=== PATIENT | female | born 1985 | race African-American/Black ===

== ENCOUNTER → 2021-09-16 | Day surgery (SDC) | payer OTHER ==
[2021-09-15 12:03] LABS: BASOPHILS % 0.5 % (0.0-1.0); EOSINOPHILS % 0.6 % (0.0-6.0); HEMATOCRIT 31.3 % (34.2-44.1); HEMOGLOBIN 8.8 g/dL (12.0-16.0); LYMPHOCYTES # (AUTO) 2.5 (1.0-3.2); LYMPHOCYTES % 40.9 % (18.0-39.1); MEAN CORPUSCULAR HEMOGLOBIN 19.6 pg (28-32); MEAN CORPUSCULAR HGB CONC 28.1 g/dL (31-35); MEAN CORPUSCULAR VOLUME 69.6 fL (81-99); MONOCYTES # (AUTO) 0.5 (0.2-0.8); MONOCYTES % 7.8 % (4.4-11.3); NEUTROPHILS # (AUTO) 3.1 (2.1-6.9); PLATELET COUNT 343 x10e3/uL (140-360); RED CELL DISTRIBUTION WIDTH 18.8 % (11.7-14.4)
[~2021-09-16] MED LIST: BUPIVACAINE HCL 0.5% INJ 30 ML VIAL INJ ONE; DEXAMETHASONE SOD PHOS INJ 4 MG/ML SDV ONE; FENTANYL CITRATE/PF 100MCG/2 ML INJ ONE; KETOROLAC TROMETHAMINE 30 MG/ML VIAL ONE; LIDOCAINE HCL 2% LOCAL INJ 5 ML SDV VIAL INJ ONE; MIDAZOLAM HCL 2 MG/2 ML VIAL ONE; NEOSTIGMINE 1 MG/ML 10ML VIAL ONE; ODEFSEY TABLET1 EACH PO; ONDANSETRON HCL INJ 2MG/ML 2ML 2 MG/ML VIAL ONE; POVIDONE IODINE 0.05% 0.05 % ML PO ONE; PROPOFOL IV EMULSION 10 MG/ML 20 ML VIAL ONE; SEVOFLURANE INHAL SOLN 250 ML PEN BTL ONE; SODIUM CHLORIDE 0.9% 50ML 100 ML ONE; VENTOLIN HFA18 GM INH; ZYRTEC-D TABLE1 EACH PO
[2021-09-16 12:40] VITALS: BP 130/84
== END | disposition home or self-care (01) ==
LOC: OR 08:31
PROVIDERS: ATTEND Podiatrist Foot & Ankle Surgery
DX: M20.42 Other hammer toe(s) (acquired), left foot (principal); M79.672 Pain in left foot; Z01.812 Encounter for preprocedural laboratory examination; Z01.818 Encounter for other preprocedural examination; Z20.822 Contact with and (suspected) exposure to COVID-19; J45.909 Unspecified asthma, uncomplicated
CPT/HCPCS: 28285; 36415; 71046; 76000; 81025; 85025; J0690; J1100; J1885; J2001; J2250; J2405; J2704; J2710; J3010; Q4150; U0002